=== PATIENT | male | born 1955 | race Caucasian/White ===

== ENCOUNTER 2025-05-15 14:18 | Emergency (ER) | payer MEDICARE, BC ==
[~2025-05-15] VITALS: Ht 188 cm; Wt 134.1 kg
[2025-05-15] MEDS: LIDOCAINE W/EPINEPHrine 1% 20 ML VIAL SC ONE (14:30)
[2025-05-15] MEDS: TETANUS/DIPHTH/ACEL. PERTUSSIS 0.5 ML SYR IM ONE (14:41)
[2025-05-15] MEDS ORDERED: predniSONE 20 MG TAB PO ONE (15:35)
[2025-05-15 16:18] VITALS: BP 124/72; TEMP 98; O2SAT 95
== END 2025-05-15 16:30 | disposition home or self-care (01) ==
LOC: EDBD 14:18 → M ED 14:18
DX: S61.412A Laceration without foreign body of left hand, initial encounter (principal); W20.8XXA Other cause of strike by thrown, projected or falling object, initial encounter; I10 Essential (primary) hypertension; M77.32 Calcaneal spur, left foot; Z23 Encounter for immunization; Y92.009 Unspecified place in unspecified non-institutional (private) residence as the place of occurrence of the external cause; Y93.89 Activity, other specified; Y99.9 Unspecified external cause status